=== PATIENT | female | born 1965 | race Two or more races ===

== ENCOUNTER 2024-10-12 07:45 | Inpatient (IN) | payer MEDICAID ==
[~2024-10-12] VITALS: Ht 152.4 cm; Wt 67.9 kg
--- NOTE | 2024-10-12 07:52 | ED.PDOC ---
HPI Comments This is a 59 year old female KASSIE presenting to the ED with chief complaint of HTN. EMS reports that while patient was undergoing dialysis this morning for the past 3 hours, patient was noted to have hypertension with a BP of 202/93. EMS relays that the patient is currently experience chills with associated nausea, but her nausea was resolved once Zofran 4mg was provided. EMS states only 500mL of fluid was removed during dialysis. Patient denies any chest pain, SOB, dizzi ness, headache, cough, congestion, fever, or chills. Time Seen by MD: 07:50 Primary Care Provider: NONE Reviewed Notes: Nurses Notes, Human Resources Leader Notes, Medications, Allergies Allergies: Coded Allergies: Chlorhexidine (Verified Allergy, Unknown, 10/12/24) Information Source: Patient, Emergency Med Personnel Mode of Arrival: EMS Severity: Moderate Timing: Hours Duration: Since onset Prehospital treatment: None Onset: Other (During dialysis) Cardiac Risk Factors: Hyperlipidemia, HTN, Diabetes PE Risk Factors: None Past Medical History PAST MEDICAL HISTORY: CKF, DM, High Lipids, HTN Surgical History: Denies all surgeries FORENSIC ACCOUNTANT History: No Pertinent FORENSIC ACCOUNTANT History Family History Family History: No family hx of HTN Social History Smoker: Non-Smoker Alcohol: Denies ETOH Use Drugs: Denies Drug Use Lives In: Home Constitutional: reports: chills; denies: diaphoresis, fatigue, fever, malaise, sweats, weakness, others EENTM: denies: blurred vision, double vision, ear bleeding, ear discharge, ear drainage, ear pain, ear ringing, eye pain, eye redness, hearing loss, mouth pain, mouth swelling, nasal discharge, nose bleeding, nose congestion, nose pain, photophobia, tearing, throat pain, throat swelling, voice changes, others Respiratory: denies: cough, hemoptysis, orthopnea, SOB at rest, shortness of breath, SOB with excertion, stridor, wheezing, others Cardiovascular: denies: chest pain, dizzy spells, diaphoresis, Dyspnea on ex ertion, edema, irregular heart beat, left arm pain, lightheadedness, palpitations, PND, syncope, others Gastrointestinal: reports: nausea; denies: abdomen distended, abdominal pain, blood streaked bowels, constipated, diarrhea, dysphagia, difficulty swallowing, hematemesis, melena, poor appetite, poor fluid intake, rectal bleeding, rectal pain, vomiting, others Genitourinary: denies: abnormal vagina bleeding, burning, dyspareunia, dysuria, flank pain, frequency, hematuria, incontinence, pain, , vagina discharge, urgency, others Neurological: denies: dizziness, fainting, headache, left sided numbness, left sided weakness, numbness, paresthesia, pre-existing deficit, right sided numbness, right sided weakness, seizure, speech problems, tingling, tremors, weakness, others Musculoskeletal: denies: back pain, gout, joint pain, joint swelling, muscle pain, muscle stiffness, neck pain, others Integumetry: denies: bruises, change in color, change in hair/nails, dryness, laceration, lesions, lumps, rash, wounds, others Allergic/Immunocompromised: denies: Difficulty Healing, Frequent Infections, Hives, Itching, others Hematologic/Lymphatic: denies: anemia, blood clots, easy bleeding, easy bruising, swollen glands, others Endocrine: denies: excessive hunger, excessive sweating, excessive thirst, excessive urination, flushing, intolerance to cold, intolerance to heat, unexplained weight gain, unexplained weight loss, others Psychiatric: denies: anxiety, bipolar disorder, depression, hopeless, panic disorder, schizophrenia, sleepless, suicidal, others All Other Systems: Reviewed and Negative Physical Exam General Appearance: Moderate Distress, Normal HEENT: Normal ENT Inspection, Pharynx Normal, TMs Normal Neck: Full Range of Motion, Non-Tender, Normal, Normal Inspection Respiratory: Chest Non-Tender, Lungs Clear, No Accessory Muscle Use, No Respiratory Distress, Normal Breath Sounds Cardiovascular: No Edema, No JVD, No Murmur, No Gallop, Normal Peripheral Pulses, Regular Rate/Rhythm Breast Exam: Deferred Gastrointestinal: No Organomegaly, Non Tender, No Pulsatile Mass, Normal Bowel Sounds, Soft Genitalia: Deferred Pelvic: Deferred Rectal: Deferred Extremities: No calf tenderness, Normal capillary refill, Normal inspection, Normal range of motion, Non-tender, No pedal edema Musculoskeletal : Apperance: Normal Neurologic: Alert, animal nutritionist II-XII nml as Tested, No Motor Deficits, Normal Affect, Normal Mood, No Sensory Deficits Cerebellar Function: NOT DONE Reflexes: NOT DONE Skin: Dry, Normal Color, Warm Peripheral Pulses: 3+ Radial (R), 3+ Radial (L) Lymphatic: No Adenopathy EKG EKG : Pulse Rate (adult): 72 Orion: Normal Cardiac Rhythm: NSR Block: None Hypertrophy: None ST: Normal Was a procedure done? Was a procedure done?: No CP Differential Dx Differential Diagnosis: A-fib, A-Flutter, Angina, Anxiety / Panic Attack, Atrial Dysrhythmia, Electrolyte Disorder X-Ray, Labs, Meds, VS Vital Signs Date Time Temp Pulse Resp B/P (MAP) Pulse Ox O2 Delivery O2 Flow Rate FiO2 10/12/24 08:25 69 14 188/69 (108) 97 10/12/24 08:25 69 14 97 Room Air* 0 21 10/12/24 07:59 72 10/12/24 07:53 72 10/12/24 07:45 97.9 73 16 202/92 (128) 97 97.9 Lab Test 10/12/24 07:57 Range/Units White Blood Count 9.9 4.4-10.8 10^3/uL Red Blood Count 3.37 L 4.0-5.20 10^6/uL Hemoglobin 11.0 L 12.2-16.2 g/dL Hematocrit 30.6 L 36.0-46.0 % Mean Corpuscular Volume 90.7 80.0-100.0 fL Mean Corpuscular Hemoglobin 32.7 H 28.0-32.0 pg Mean Corpuscular Hemoglobin Concent 36.0 32.0-36.0 g/dL Red Cell Distribution Width 13.1 11.8-14.3 % Platelet Count 186 140-450 10^3/uL Mean Platelet Volume 9.8 6.9-10.8 fL Neutrophils (%) (Auto) 71.1 37.0-80.0 % Lymphocytes (%) (Auto) 20.3 10.0-50.0 % Monocytes (%) (Auto) 5.5 0.0-12.0 % Eosinophils (%) (Auto) 2.5 0.0-7.0 % Basophils (%) (Auto) 0.6 0.0-2.0 % Neutrophils # (Auto) 7.0 1.6-8.6 10 ^3/uL Lymphocytes # (Auto) 2.0 0.4-5.4 10 ^3/uL Monocytes # (Auto) 0.5 0-1.3 10 ^3/uL Eosinophils # (Auto) 0.2 0-0.8 10 ^3/uL Basophils # (Auto) 0.1 0-0.2 10 ^3/uL Nucleated Red Blood Cells 0.0 % Sodium Level 137 136-145 mmol/L Potassium Level 3.5 3.5-5.1 mmol/L Chloride Level 94 L 98-107 mmol/L Carbon Dioxide Level 33 H 20-31 mmol/L Anion Gap 10 5-15 Blood Urea Nitrogen 21 9-23 mg/dL Creatinine 2.85 H 0.550-1.02 mg/dL Glomerular Filtration Rate Calc 18 >90 mL/min BUN/Creatinine Ratio 7.4 L 10.0-20.0 Serum Glucose 107 H 74-106 mg/dL Calcium Level 9.5 8.7-10.4 mg/dL Patient alert. Came from dialysis center. Vitals stable. Answering questions. EKG reviewed does not show any acute changes. Continue monitoring. Chest XR: FINDINGS: Lines and tubes: None Cardiomediastinal silhouette: Enlarged Pulmonary vasculature: Prominent Lung expansion: normal Lung airspace: normal Lung interstitium: normal Pleura: normal Pneumothorax: no Bones: Unremarkable Other: no IMPRESSION: Cardiomegaly with pulmonary congestion. Images Reviewed?: Images reviewed and evaluated by me Time of 1ST Reevaluation: 08:49 Reevaluation 1ST: Unchanged Patient Education/Counseling: Diagnosis, Treatment Family Education/Counseling: No Family Present SEPSIS Sepsis Screen Physician Orders Chest Portable (10/12/24 08:16) Electrocardigram (10/12/24 08:20) Vital Signs Date Time Temp Pulse Resp B/P (MAP) Pulse Ox O2 Delivery O2 Flow Rate FiO2 10/12/24 08:25 69 14 188/69 (108) 97 10/12/24 08:25 69 14 97 Room Air* 0 21 10/12/24 07:59 72 10/12/24 07:53 72 10/12/24 07:45 97.9 73 16 202/92 (128) 97 97.9 Laboratory Tests Test 10/12/24 07:57 White Blood Count 9.9 10^3/uL (4.4-10.8) Departure 1 Departure Time of Disposition: 07:58 Impression: Primary Impression: Hypertensive emergency Additional Impression: Chronic kidney disease on chronic dialysis Disposition: ADMITTED INPATIENT Admit to: Med Surg Condition: Guarded Critical Care Note Critical Care Time?: No Stability Stability form required: No Heart Score Heart Score: Heart Score Response (Comments) Value History Moderate Suspicious 1 EKG Normal 0 Age 45-64 1 Risk Factors >3 or Hx ASHD 2 Troponin N/A 0 Total 4 I personally scribed for AZALIA BETTENCOURT MD ([email or web address]) on 10/12/24 at 07:52. Electronically submitted by Phi Vazquez ([email or web address]). I personally scribed for AZALIA BETTENCOURT MD ([email or web address]) on 10/12/24 at 07:59. Electronically submitted by Phi Vazquez ([email or web address]). I personally scribed for AZALIA BETTENCOURT MD ([email or web address]) on 10/12/24 at 09:00. Electronically submitted by Phi Vazquez ([email or web address]). AZALIA BETTENCOURT MD Oct 12, 2024 07:52
[2024-10-12 08:25] VITALS: PULSE 69; RESP 14; O2SAT 97
[2024-10-12 08:33] LABS: Hematocrit 30.6 % (36.0-46.0); Hemoglobin 11.0 g/dL (12.2-16.2); Mean Corpuscular Hemoglobin 32.7 pg (28.0-32.0); Mean Corpuscular Volume 90.7 fL (80.0-100.0); Nucleated Red Blood Cells % 0.0 %
[2024-10-12 08:36] LABS: Potassium 3.5 mmol/L (3.5-5.1); Sodium 137 mmol/L (136-145)
[2024-10-12 08:37] LABS: Anion Gap 10 (5-15)
[2024-10-12 08:38] LABS: Calcium 9.5 mg/dL (8.7-10.4); Carbon Dioxide 33 mmol/L (20-31); Chloride 94 mmol/L (98-107)
[2024-10-12 08:42] LABS: BUN/Creatinine Ratio 7.4 (10.0-20.0); Blood Urea Nitrogen 21 mg/dL (9-23); Glucose 107 mg/dL (74-106)
--- NOTE | 2024-10-12 08:55 | DVH ---
XY CHEST PORTABLE, HISTORY: sob COMPARISON: None None TECHNICAL DATA: 1 view of the chest was obtained. FINDINGS: Lines and tubes: None Cardiomediastinal silhouette: Enlarged Pulmonary vasculature: Prominent Lung expansion: normal Lung airspace: normal Lung interstitium: normal Pleura: normal Pneumothorax: no Bones: Unremarkable Other: no IMPRESSION: Cardiomegaly with pulmonary congestion.
[2024-10-12] MEDS: LABETALOL HCL 20 MG/4 ML VL IV ONE (09:34)
[2024-10-12] MEDS ORDERED: DOCUSATE SOD 100 MG CAP PO PRN ×4 (11:00→11:15)
[2024-10-12] MEDS ORDERED: MORPHINE SULFATE INJ 2 MG/ml SYRG IV PRN (11:00)
[2024-10-12] MEDS ORDERED: ONDANSETRON HCL 4 MG/2 ML VIAL IV PRN ×4 (11:00→11:15)
[2024-10-12] MEDS ORDERED: NITROGLYCERIN 0.4 MG SL TAB SL PRN ×2 (11:00→11:15)
--- NOTE | 2024-10-12 11:08 | DVHHP2 ---
History of Present Illness Reason for Visit: elevated blood pressure History of Present Illness 59-year-old female with past medical history of (CKD) on dialysis, hyperlipidemia, and hypertension with no known surgical history, presented after developing hypertensive urgency and chills during dialysis. According to her son, Nelson (food equipment service technician at bedside), the patient underwent her regular dialysis session earlier today. Only 500 mL of fluid was removed over three hours. During the session, her blood pressure spiked to 202/93, and she developed chills and nausea. She received Zofran from paramedics en route. She currently denies chest pain, shortness of breath, or urinary symptoms. She was noted to be trembling in transit, but appeared calm upon ED evaluation. In the ED, labetalol was administered. Lab results revealed: CBC unremarkable, creatinine 2.85, CO 33, chloride 95, glucose 107, and CMP otherwise unremarkable. Chest x-ray showed pulmonary vascular congestion and cardiomegaly. Given hypertensive urgency during dialysis, incomplete fluid removal, and concern for fluid overload, patient will be admitted for BP control, further cardiac workup, and evaluation for dialysis adequacy. Past Medical History See HPI above Past Surgical History See HPI above Family History Reviewed, non-contributory to the management of this case. Past Social History The patient lives at home, denies smoking, alcohol or illicit drugs abuse. Review of Systems Constitutional: Yes: Fever, Chills; No: Sweats, Weakness, Malaise, Other Eyes: No: Pain, Vision change, Conjunctivae inflammation, Eyelid inflammation, Other, Redness ENT: No: Ear pain, Ear discharge, Nose pain, Nose discharge, Nose congestion, Mouth pain, Mouth swelling, Throat pain, Throat swelling, Other Respiratory: No: Cough, Dry, Shortness of breath, SOB with excertion, Wheezing, Hemoptysis, Pleuritic Pain, Sputum, Wheezing, Other Cardiovascular: No: Chest Pain, Palpitations, Orthopnea, Paroxysmal Noc. Dyspnea, Edema, Lt Headedness, Other Gastrointestinal: No: Nausea, Vomiting, Abdominal Pain, Diarrhea, Constipation, Melena, Hematochezia, Other Genitourinary: No Dysuria, No Frequency, No Incontinence, No Hematuria, No Retention, No Other Musculoskeletal: No: other, neck pain, shoulder pain, arm pain, back pain, hand pain, leg pain, foot pain Skin: No: Rash, Lesions, Jaundice, Bruising, Other Neurological: No: Weakness, Numbness, Incoordination, Change in speech, Confusion, Seizures, Other Allergies: Coded Allergies: Chlorhexidine (Verified Allergy, Unknown, 10/12/24) Medications Current Medications Medications Dose Ordered Sig/Jareth Route Start Time Stop Time Status Last Admin Dose Admin Ondansetron HCl 4 mg Q4HP PRN IV 10/12/24 11:00 UNV Docusate Sodium 100 mg BIDPRN PRN PO 10/12/24 11:00 UNV Enoxaparin Sodium 30 mg DAILY SC 10/13/24 10:00 UNV Morphine Sulfate 2 mg Q4HPRN PRN IV 10/12/24 11:00 UNV Ondansetron HCl 4 mg Q4HP PRN IV 10/12/24 11:00 UNV Docusate Sodium 100 mg BIDPRN PRN PO 10/12/24 11:00 UNV Nitroglycerin 0.4 mg Q5MINP PRN SL 10/12/24 11:00 UNV Exam Vital Signs Vital Signs Date Time Temp Pulse Resp B/P (MAP) Pulse Ox O2 Delivery O2 Flow Rate FiO2 10/12/24 09:34 69 193/86 10/12/24 08:25 14 97 10/12/24 08:25 Room Air* 0 21 10/12/24 07:45 97.9 97.9 General Appearance: Alert, Oriented X3, Cooperative, No acute distress HEENT: Atraumatic, PERRLA, EOMI, Mucous membr. moist/pink Respiratory: Clear to auscultation, Normal air movement Cardiovascular: Regular rate, Normal S1, Normal S2, No murmurs Abdominal: Normal bowel sounds, Soft, No tenderness, No hepatospenomegaly, No masses Extremities: No clubbing, No cyanosis, No edema, Normal pulses, No tender ness/swelling Skin: No rashes, No breakdown, No significant lesion Neuro: Normal gait, Normal speech, Strength at 5/5 X4 ext, Normal tone, Sensation intact, Cranial nerves 3-12 NL Psych/Mental Status: Mental status NL, Mood NL Labs/Xrays Chest x-ray shows pulmonary congestion and cardiomegaly I reviewed labs, imaging CT scan abdomen pelvis, EKG and all diagnostic studies on this patient from ED records and the medical chart Labs Test 10/12/24 07:57 Range/Units White Blood Count 9.9 4.4-10.8 10^3/uL Red Blood Count 3.37 L 4.0-5.20 10^6/uL Hemoglobin 11.0 L 12.2-16.2 g/dL Hematocrit 30.6 L 36.0-46.0 % Mean Corpuscular Volume 90.7 80.0-100.0 fL Mean Corpuscular Hemoglobin 32.7 H 28.0-32.0 pg Mean Corpuscular Hemoglobin Concent 36.0 32.0-36.0 g/dL Red Cell Distribution Width 13.1 11.8-14.3 % Platelet Count 186 140-450 10^3/uL Mean Platelet Volume 9.8 6.9-10.8 fL Neutrophils (%) (Auto) 71.1 37.0-80.0 % Lymphocytes (%) (Auto) 20.3 10.0-50.0 % Monocytes (%) (Auto) 5.5 0.0-12.0 % Eosinophils (%) (Auto) 2.5 0.0-7.0 % Basophils (%) (Auto) 0.6 0.0-2.0 % Neutrophils # (Auto) 7.0 1.6-8.6 10 ^3/uL Lymphocytes # (Auto) 2.0 0.4-5.4 10 ^3/uL Monocytes # (Auto) 0.5 0-1.3 10 ^3/uL Eosinophils # (Auto) 0.2 0-0.8 10 ^3/uL Basophils # (Auto) 0.1 0-0.2 10 ^3/uL Nucleated Red Blood Cells 0.0 % Sodium Level 137 136-145 mmol/L Potassium Level 3.5 3.5-5.1 mmol/L Chloride Level 94 L 98-107 mmol/L Carbon Dioxide Level 33 H 20-31 mmol/L Anion Gap 10 5-15 Blood Urea Nitrogen 21 9-23 mg/dL Creatinine 2.85 H 0.550-1.02 mg/dL Glomerular Filtration Rate Calc 18 >90 mL/min BUN/Creatinine Ratio 7.4 L 10.0-20.0 Serum Glucose 107 H 74-106 mg/dL Calcium Level 9.5 8.7-10.4 mg/dL SEPSIS Sepsis Screen Date sepsis recognized/suspect: Oct 12, 2024 Time Sepsis recognized/suspect: 0838 Recent Procedure: No On Antibiotic Therapy: No Respiratory Rate >20: No Heart Rate >90: No Temp<36 C (96.8 F) or >38.3 C: No SBP <90 or MAP <65 mmHG: No New Acute Mental Status Change: No Is the patient on CPAP, BIPAP,: No Physician Orders Chest Portable (10/12/24 08:16) Electrocardigram (10/12/24 08:20) Communication Order (10/12/24 10:51) Allergies (10/12/24 10:51) Ondansetron Hcl (Zofran) (10/12/24 11:00) Docusate Sodium Capsule (Colace Capsule) (10/12/24 11:00) Complete Blood Count (10/13/24 04:00) Comprehensive Metabolic Panel (10/13/24 04:00) Cardiac Diet-2gna,Lofat,Lochol (10/12/24 Lunch) Condition: Stable (10/12/24 10:51) Enoxaparin Sodium (Lovenox) (10/13/24 10:00) BRP (10/12/24 10:51) Morphine Sulfate Injection (10/12/24 11:00) Sequential Compression Device (10/12/24 ) Admit (10/12/24 10:53) Code Status (10/12/24 10:53) Ondansetron Hcl (Zofran) (10/12/24 11:00) Docusate Sodium Capsule (Colace Capsule) (10/12/24 11:00) Nitroglycerin Sublingual (Ntrostat Subli (10/12/24 11:00) Stat Ekg For Chest Pain (10/12/24 10:53) Notify Md Of Changes From Base (10/12/24 10:53) Ammonia Worker For 24 Hours (10/12/24 10:53) Emergency Dysrhythmia Protocol (10/12/24 10:53) Rhythm Strips Once Every Shift (10/12/24 10:53) Oxygen By Nasal Cannula (10/12/24 10:53) *Dr. Renita Carmona (10/12/24 10:55) Urinalysis (10/12/24 10:56) Blood Culture (10/12/24 10:56) Rapid Influenza A&B (10/12/24 10:56) Covid19 Antigen Jodi (10/12/24 ) Vital Signs Date Time Temp Pulse Resp B/P (MAP) Pulse Ox O2 Delivery O2 Flow Rate FiO2 10/12/24 09:34 69 193/86 10/12/24 08:25 69 14 188/69 (108) 97 10/12/24 08:25 69 14 97 Room Air* 0 21 10/12/24 07:59 72 10/12/24 07:53 72 10/12/24 07:45 97.9 73 16 202/92 (128) 97 97.9 Laboratory Tests Test 10/12/24 07:57 White Blood Count 9.9 10^3/uL (4.4-10.8) Medications Medications Dose Ordered Sig/Jareth Route Start Time Stop Time Status Last Admin Dose Admin Labetalol HCl 10 mg ONCE ONCE IV 10/12/24 08:15 10/12/24 08:16 DC 10/12/24 09:34 10 MG Assessment/Plan Assessment/Plan 59 yr old female with Hypertensive urgency in setting of chronic kidney disease on dialysis admit for BP control, cardiology evaluation, and dialysis management. ASSESSMENT & PLAN acute Hypertensive urgency BP 202/93 during dialysis session Treated with IV labetalol in ED Monitor BP q4h Resume/adjust antihypertensives as needed Daily labs and telemetry monitoring Cardiology consult Echocardiogram Chronic kidney disease on dialysis on HD TTS Missed fluid goal during dialysis (only 500 mL removed) Nephrology consult (Dr. rosanna carmona) pt will likely need additional dialysis Monitor weight, fluid balance, and electrolytes Blood cultures 2 and UA sent to rule out infection Nausea/chills during dialysis Likely related to hypertensive episode or volume status Monitor for signs of sepsis pending cultures Continue antiemetics (Zofran PRN) Cardiomegaly and pulmonary vascular congestion Seen on chest x-ray Concern for volume overload Order Echocardiogram fu results ordered Lasix since pt makes urine chronic problems CKD stage 5 on dialysis Essential hypertension Hyperlipidemia FEN / PPx Fluids: Avoid IVFs unless hypotensive; manage volume status via dialysis Electrolytes: Daily BMP, replete as needed Nutrition: Renal diet DVT Prophylaxis: SCDs unless contraindicated; lovenox GI Prophylaxis: PPI not indicated since no hx of gerds or gi bleed Disposition Admit to medicine for hypertensive urgency in the setting of dialysis-dependent CKD. Monitor vitals, labs, and fluid balance. Await blood cultures. Consult cardiology and nephrology. Echocardiogram pending. consult renal since pt will likely additional dialysis Plan discussed with: Patient, Son (nelson seaman [phone]) My Orders Orders - DAVID FERGUSON DNP Procedure Category Date Status Time Communication Order ORDERS 10/12/24 Transmitted 10:51 Allergies KSENIA 10/12/24 In Process 10:51 Ondansetron Hcl PHA 10/12/24 Logged (Zofran) 11:00 Docusate Sodium PHA 10/12/24 Logged Capsule (Colace 11:00 Complete Blood Count LAB 10/13/24 Verified 04:00 Comprehensive LAB 10/13/24 Verified Metabolic Panel 04:00 Cardiac DIET 10/12/24 Transmitted Diet-2gna,Lofat,Lochol Lunch Condition: Stable KSENIA 10/12/24 In Process 10:51 Enoxaparin Sodium PHA 10/13/24 Logged (Lovenox) 10:00 BRP KSENIA 10/12/24 In Process 10:51 Morphine Sulfate PHA 10/12/24 Logged Injection 11:00 Sequential KSENIA 10/12/24 In Process Compression Device Admit ADMIT 10/12/24 Transmitted 10:53 Code Status CODE 10/12/24 Transmitted 10:53 Ondansetron Hcl PHA 10/12/24 Logged (Zofran) 11:00 Docusate Sodium PHA 10/12/24 Logged Capsule (Colace 11:00 Nitroglycerin PHA 10/12/24 Logged Sublingual (Ntrostat 11:00 Stat Ekg For Chest KSENIA 10/12/24 In Process Pain 10:53 Notify Of Changes KSENIA 10/12/24 In Process From Base 10:53 Ammonia Worker For KSENIA 10/12/24 In Process 24 Hours 10:53 Emergency Dysrhythmia KSENIA 10/12/24 In Process Protocol 10:53 Rhythm Strips Once KSENIA 10/12/24 In Process Every Shift 10:53 Oxygen By Nasal RT 10/12/24 Transmitted Cannula 10:53 *Dr. Renita Carmona CONS 10/12/24 Transmitted 10:55 Urinalysis LAB 10/12/24 Logged 10:56 Blood Culture NIDHI 10/12/24 Logged 10:56 Rapid Influenza A&B LAB 10/12/24 Logged 10:56 Covid19 Antigen Jodi LAB 10/12/24 Logged Date of Service: Oct 12, 2024 Billing Provider: DAVID FERGUSON DNP Common Visit Codes: [id number] INP/OBS CARE (HIGH) DAVID FERGUSON DNP Oct 12, 2024 11:08
[2024-10-12 11:24] LABS: Urine Protein, UAD 1+ (Negative)
[2024-10-12 17:08] LABS: COVID19 ANTIGEN SOFIA FIA NEGATIVE (NEGATIVE)
[2024-10-12 17:56] VITALS: BP 163/83; PULSE 62; RESP 18; TEMP 97.8; O2SAT 96
--- NOTE | 2024-10-12 18:53 | ECG ---
[facility] Test Date: 2024-10-12 Test Time: 07:53:59 Pat Name: DONITA AGUILERA Department: ED Room: 0274T Gender: F Shear Assembler: amador : 1965 Requested By: AZALIA BETTENCOURT Order Number: [id number] Reading MD: Measurements Intervals [place] Rate: 72 P: 11 NH: 150 QRS: -23 QRSD: 113 T: 5 QT: 570 QTc: 625 Interpretive Statements Sinus rhythm Incomplete RBBB and LAFB Abnormal R-wave progression, late transition Probable left ventricular hypertrophy Prolonged QT interval Please click the below link to view image of tracing.
[2024-10-12 20:00] VITALS: PULSE 68
[2024-10-12 21:00] VITALS: BP 149/81; PULSE 66; RESP 18; TEMP 96.9; O2SAT 91
--- NOTE | 2024-10-12 21:09 | DVHINCON2 ---
Date of service: Oct 12, [address] Renee Reason for Consultation ESRD and dialysis management. History of Present Illness Paige Shafer is a 59-year-old female with a Past Medical History pertinent for CKD on dialysis, Hyperlipidemia and Hypertension who presented to the hospital after developing hypertensive urgency and chills during dialysis. Patient underwent her regular dialysis session earlier today per son. Only 500 mL of fluid was removed over three hours. During treatment, her blood pressure increased to 202/93 and she developed chills and nausea. Patient was brought to the hospital by ambulance. She received Zofran from [facility] en route. Patient denies any current chest pain, shortness of breath, or urinary symptoms. During ED course, CBC was unremarkable, Creatinine 2.85, CO 33, Chloride 95, Glucose 107. CMP otherwise unremarkable. Chest x-ray showed pulmonary vascular congestion and cardiomegaly. IV labetalol was administered with improvement. Allergies: Coded Allergies: Chlorhexidine (Verified Allergy, Unknown, 10/12/24) Current Medications Current Medications Medications (Trade) Dose Ordered Sig/Jareth Route PRN Reason Start Time Stop Time Status Last Admin Ondansetron HCl (Zofran) 4 mg Q4HP PRN IV NAUSEA / VOMITING 10/12/24 11:00 10/12/24 11:13 DC Docusate Sodium (Colace Capsule) 100 mg BIDPRN PRN PO FOR CONSTIPATION 10/12/24 11:00 10/12/24 11:13 DC Enoxaparin Sodium (Lovenox) 30 mg DAILY SC 10/13/24 10:00 10/12/24 11:13 DC Morphine Sulfate 2 mg Q4HPRN PRN IV SEVERE PAIN (7-10 PAIN SCALE) 10/12/24 11:00 10/12/24 11:13 DC Ondansetron HCl (Zofran) 4 mg Q4HP PRN IV NAUSEA / VOMITING 10/12/24 11:00 10/12/24 11:13 DC Docusate Sodium (Colace Capsule) 100 mg BIDPRN PRN PO FOR CONSTIPATION 10/12/24 11:00 10/12/24 11:13 DC Nitroglycerin (Ntrostat Sublingual) 0.4 mg Q5MINP PRN SL FOR CHEST PAIN 10/12/24 11:00 10/12/24 11:13 DC Ondansetron HCl (Zofran) 4 mg Q4HP PRN IV NAUSEA / VOMITING 10/12/24 11:15 10/12/24 11:27 DC Enoxaparin Sodium (Lovenox) 30 mg DAILY SC 10/13/24 10:00 Morphine Sulfate 2 mg Q4HPRN PRN IV SEVERE PAIN (7-10 PAIN SCALE) 10/12/24 11:15 Ondansetron HCl (Zofran) 4 mg Q4HP PRN IV NAUSEA / VOMITING 10/12/24 11:15 Docusate Sodium (Colace Capsule) 100 mg BIDPRN PRN PO FOR CONSTIPATION 10/12/24 11:15 10/12/24 11:27 DC Docusate Sodium (Colace Capsule) 100 mg BIDPRN PRN PO FOR CONSTIPATION 10/12/24 11:15 Nitroglycerin (Ntrostat Sublingual) 0.4 mg Q5MINP PRN SL FOR CHEST PAIN 10/12/24 11:15 Hydralazine HCl (Apresoline Injection) 10 mg Q6HP PRN IV SBP>150 10/12/24 13:15 Furosemide (Lasix Injection) 20 mg DAILY IV 10/13/24 10:00 Family History: Chronic obstructive pulmonary disease G8 FATHER Diabetes mellitus G8 MOTHER Hypertension G8 MOTHER Review of Systems Constitutional: Yes: Fever, Chills; No: Sweats, Weakness, Malaise, Other Respiratory: No: Cough, Dry, Shortness of breath, SOB with excertion, Wheezing, Hemoptysis, Pleuritic Pain, Sputum, Wheezing, Other Cardiovascular: No: Chest Pain, Palpitations, Orthopnea, Paroxysmal Noc. Dyspnea, Edema, Lt Headedness, Other Gastrointestinal: No: Nausea, Vomiting, Abdominal Pain, Diarrhea, Constipation, Melena, Hematochezia, Other Musculoskeletal: No: other, neck pain, shoulder pain, arm pain, back pain, hand pain, leg pain, foot pain All other systems reviewed and negative unless otherwise noted in HPI. H&P Exam Vital Signs/I&O Vital Sign Date Time Temp Pulse Resp B/P (MAP) Pulse Ox O2 Delivery O2 Flow Rate FiO2 10/12/24 20:00 Room Air* 0 21 10/12/24 17:56 97.8 62 18 163/83 (109) 96 97.8 Physical Exam Vitals and nursing notes reviewed. General Appearance: Cooperative, No acute distress HEENT: Atraumatic, PERRLA, EOMI, Mucous membr. moist/pink Respiratory: Clear to auscultation, Normal air movement Cardiovascular: Regular rate, Normal S1, Normal S2, No murmurs Abdominal: Normal bowel sounds, Soft, No tenderness, No hepatospenomegaly, No masses Extremities: No clubbing, No cyanosis, No edema, Normal pulses, No tenderness/swelling Skin: No rashes, No breakdown, No significant lesion Neuro: Alert, Oriented X3, Normal gait, Normal speech, Strength at 5/5 X4 ext, Normal tone, Sensation intact, Cranial nerves 3-12 NL Psych/Mental Status: Mental status NL, Mood NL Labs/Diagnostic Data Labs/Diagnostic Data Laboratory Tests Test 10/12/24 16:28 10/12/24 10:56 10/12/24 07:57 Range/Units Influenza Type A Antigen Negative Negative Influenza Type B Antigen Negative Negative SARS-CoV-2 Antigen (Rapid) Negative NEGATIVE Urine Color Colorless Yellow Urine Clarity Clear Clear Urine pH 8.0 5.0-9.0 Urine Specific [place] 1.004 1.001-1.035 Urine Protein 1+ H Negative Urine Ketones Negative Negative Urine Blood Negative Negative /uL Urine Nitrite Negative Negative Urine Bilirubin Negative Negative Urine Urobilinogen Normal Negative mg/dL Urine Leukocyte Esterase Negative Negative /uL Urine RBC 1 0 - 4 /hpf Urine Microscopic WBC 1 0-5 /HPF Urine Squamous Epithelial Cells Few <5 /hpf Urine Bacteria None seen None Seen /hpf Urine Glucose Normal Normal mg/dL White Blood Count 9.9 4.4-10.8 10^3/uL Red Blood Count 3.37 L 4.0-5.20 10^6/uL Hemoglobin 11.0 L 12.2-16.2 g/dL Hematocrit 30.6 L 36.0-46.0 % Mean Corpuscular Volume 90.7 80.0-100.0 fL Mean Corpuscular Hemoglobin 32.7 H 28.0-32.0 pg Mean Corpuscular Hemoglobin Concent 36.0 32.0-36.0 g/dL Red Cell Distribution Width 13.1 11.8-14.3 % Platelet Count 186 140-450 10^3/uL Mean Platelet Volume 9.8 6.9-10.8 fL Neutrophils (%) (Auto) 71.1 37.0-80.0 % Lymphocytes (%) (Auto) 20.3 10.0-50.0 % Monocytes (%) (Auto) 5.5 0.0-12.0 % Eosinophils (%) (Auto) 2.5 0.0-7.0 % Basophils (%) (Auto) 0.6 0.0-2.0 % Neutrophils # (Auto) 7.0 1.6-8.6 10 ^3/uL Lymphocytes # (Auto) 2.0 0.4-5.4 10 ^3/uL Monocytes # (Auto) 0.5 0-1.3 10 ^3/uL Eosinophils # (Auto) 0.2 0-0.8 10 ^3/uL Basophils # (Auto) 0.1 0-0.2 10 ^3/uL Nucleated Red Blood Cells 0.0 % Sodium Level 137 136-145 mmol/L Potassium Level 3.5 3.5-5.1 mmol/L Chloride Level 94 L 98-107 mmol/L Carbon Dioxide Level 33 H 20-31 mmol/L Anion Gap 10 5-15 Blood Urea Nitrogen 21 9-23 mg/dL Creatinine 2.85 H 0.550-1.02 mg/dL Glomerular Filtration Rate Calc 18 >90 mL/min BUN/Creatinine Ratio 7.4 L 10.0-20.0 Serum Glucose 107 H 74-106 mg/dL Calcium Level 9.5 8.7-10.4 mg/dL Assessment Acute Hypertensive urgency ESRD on dialysis on HD TTS Cardiomegaly and pulmonary vascular congestion Essential hypertension Hyperlipidemia Plan/Recommendation Agreement with your ongoing assessment and plan of care. S/p dialysis outpatient with 500 mL removed. Diuretics with Lasix 20 mg IV daily. Strict Intake/Output. Daily lab monitoring to include renal function and electrolytes. Optimization of BP with IV Labetalol. Resume antihypertensives as needed. Echocardiogram ordered/pending. F/u cultures. Antiemetics prn. Renal diet. DVT prophylaxis. Additional plan as per the hospital course. Plan discussed with: Patient, Other (RN) ISABELLA VALDERRAMA DO Oct 12, 2024 21:09
[2024-10-13] VITALS (10 sets, daily range): BP systolic 130–180; BP diastolic 70–85; PULSE 65–100; RESP 16–20; TEMP 97–97.8; O2SAT 94–99
[2024-10-13] MEDS: hydrALAZINE HCL 20 MG/ML VL IV PRN (04:55)
[2024-10-13] MEDS: ENOXAPARIN SOD 30 MG/0.3 ML SYRINGE SC SCH (09:46)
[2024-10-13] MEDS: FUROSEMIDE 20 MG/2 ML VIAL IV SCH (09:46)
[2024-10-13] MEDS: MORPHINE SULFATE INJ 2 MG/ml SYRG IV PRN (09:53)
[2024-10-13] MEDS ORDERED: ENOXAPARIN SOD 30 MG/0.3 ML SYRINGE SC SCH (10:00)
--- NOTE | 2024-10-13 12:48 | DVHPN2 ---
Subjective I am assuming the care of the patient from today onwards who was under the care of the hospitalist team. This is a 59-year-old female with a known history of insulin-dependent diabetes mellitus type 2, hypertension, end-stage renal disease on hemodialysis who initially presented to the hospital with nausea during dialysis as well as high blood pressure. Currently denies any chest pain shortness of breath. Changes from previous H/P or p: No Changes Eyes: No Pain, No Vision change, No Conjunctivae inflammation, No Eyelid inflammation, No Other, No Redness ENT: No Ear pain, No Ear discharge, No Nose pain, No Nose discharge, No Nose congestion, No Mouth pain, No Mouth swelling, No Throat pain, No Throat swelling, No Other Cardiovascular: No Chest Pain, No Palpitations, No Orthopnea, No Paroxysmal Noc. Dyspnea, No Edema, No Lt Headedness, No Other Respiratory: No Cough, No Dry, No Shortness of breath, No SOB with excertion, No Wheezing, No Hemoptysis, No Pleuritic Pain, No Sputum, No Other Gastrointestinal: No Nausea, No Vomiting, No Abdominal Pain, No Diarrhea, No Constipation, No Melena, No Hematochezia, No Other Genitourinary: No Dysuria, No Frequency, No Incontinence, No Hematuria, No Retention, No Other Musculoskeletal: No other, No neck pain, No shoulder pain, No arm pain, No back pain, No hand pain, No leg pain, No foot pain Skin: No Rash, No Lesions, No Jaundice, No Bruising, No Other Objective Vitals Vital Signs Date Time Temp Pulse Resp B/P (MAP) Pulse Ox O2 Delivery O2 Flow Rate FiO2 10/13/24 09:53 150/70 10/13/24 09:53 68 18 10/13/24 09:00 97.8 96 97.8 10/13/24 07:30 Room Air* 0 21 Intake/Output Intake and Output 10/13/24 07:00 Intake Total 0 ml Balance 0 ml Intake Oral 0 ml # Voids 1 Exam HEENT pupils are reactive Neck is supple CV is S1-S2 regular rate and rhythm Respiratory are clear GI positive bowel sound Extremity no edema W[place]OO[place] no motor deficit Medications Current Medications Medications Dose Ordered Sig/Jareth Route Start Time Stop Time Status Last Admin Dose Admin Enoxaparin Sodium 30 mg DAILY SC 10/13/24 10:00 10/13/24 09:53 30 MG Morphine Sulfate 2 mg Q4HPRN PRN IV 10/12/24 11:15 10/13/24 09:53 2 MG Ondansetron HCl 4 mg Q4HP PRN IV 10/12/24 11:15 Docusate Sodium 100 mg BIDPRN PRN PO 10/12/24 11:15 Nitroglycerin 0.4 mg Q5MINP PRN SL 10/12/24 11:15 Hydralazine HCl 10 mg Q6HP PRN IV 10/12/24 13:15 10/13/24 04:55 10 MG Furosemide 20 mg DAILY IV 10/13/24 10:00 10/13/24 09:53 20 MG Laboratory Results Laboratory Tests 10/12/24 07:57 Urinalysis Test 10/12/24 10:56 Urine Color Colorless (Yellow) Urine Clarity Clear (Clear) Urine pH 8.0 (5.0-9.0) Urine Specific [place] 1.004 (1.001-1.035) Urine Protein 1+ (Negative) H Urine Ketones Negative (Negative) Urine Blood Negative /uL (Negative) Urine Nitrite Negative (Negative) Urine Bilirubin Negative (Negative) Urine Urobilinogen Normal mg/dL (Negative) Urine Leukocyte Esterase Negative /uL (Negative) Urine RBC 1 /hpf (0 - 4) Urine Microscopic WBC 1 /HPF (0-5) Urine Squamous Epithelial Cells Few /hpf (<5) Urine Bacteria None seen /hpf (None Seen) Urine Glucose Normal mg/dL (Normal) Microbiology Microbiology Date/Time Source Procedure Growth Status 10/12/24 18:40 Nose MRSA Screen - Final Complete 10/12/24 11:13 Blood Blood Culture - Preliminary NO GROWTH AFTER 24 HOURS OF INCUBATION. Resulted Assessment/Plan Assessment/Plan 59-year-old female with a known history of end-stage renal disease on hemodialysis, hypertension, insulin-dependent diabetes sinus type 2 initially presented to the hospital with a nausea and high blood pressure found to have 1. Hypertensive urgency 2. End-stage renal disease on hemodialysis 3. Insulin-dependent diabetes mellitus type 2 -resume labetalol, nifedipine XL, long-acting insulin -Accu-Cheks q.a.c. and HS, low-dose -subcutaneous insulin sliding scale plan of care discussed with the bedside RN as well as patient's as well as patient's son at bedside. Plan discussed with: Patient, Son Date of Service: Oct 13, 2024 Billing Provider: CHAPITO AVINA MD Common Visit Codes: [id number] INP/OBS CARE(MOD) CHAPITO AVINA MD Oct 13, 2024 12:48
[2024-10-13] MEDS ORDERED: DEXTROSE (50%) 50ML SYRG IV PRN (13:00)
--- NOTE | 2024-10-13 16:12 | DVHPN2 ---
Progress Note - Dictate Date Seen: Oct 13, 2024 Has the PT tested + for MRSA If YES, has PT been informed?: No Medical Necessity Reason Pt with a Central, PICC or Fol: No Subjective Patient was seen and evaluated in follow up. No acute events overnight. Patient denies any new complaints. Pending Echo. vital signs Vital Sign Date Time Temp Pulse Resp B/P (MAP) Pulse Ox O2 Delivery O2 Flow Rate FiO2 10/13/24 14:36 132/71 (91) 10/13/24 12:48 97.5 89 20 99 97.5 10/13/24 07:30 Room Air* 0 21 Total Intake and Output 10/12/24 10/12/24 10/13/24 15:00 23:00 07:00 Intake Total 0 ml Balance 0 ml medications Current Medications Medications Dose Ordered Sig/Jareth Route Start Time Stop Time Status Last Admin Dose Admin Enoxaparin Sodium 30 mg DAILY SC 10/13/24 10:00 10/13/24 09:53 30 MG Morphine Sulfate 2 mg Q4HPRN PRN IV 10/12/24 11:15 10/13/24 09:53 2 MG Ondansetron HCl 4 mg Q4HP PRN IV 10/12/24 11:15 Docusate Sodium 100 mg BIDPRN PRN PO 10/12/24 11:15 Nitroglycerin 0.4 mg Q5MINP PRN SL 10/12/24 11:15 Hydralazine HCl 10 mg Q6HP PRN IV 10/12/24 13:15 10/13/24 13:08 10 MG Furosemide 20 mg DAILY IV 10/13/24 10:00 10/13/24 09:53 20 MG Diagnostic Test (Pha) 1 strip ACHS 10/13/24 17:00 Insulin Human Regular ACHS SC 10/13/24 17:00 Dextrose 50 ml UD PRN IV 10/13/24 13:00 Trazodone HCl 50 mg HS PO 10/13/24 22:00 Clonidine HCl 0.1 mg BID PO 10/13/24 22:00 Labetalol HCl 200 mg Q12HR PO 10/13/24 22:00 Nifedipine 60 mg DAILY PO 10/14/24 10:00 objective Vitals and nursing notes reviewed. General Appearance: Cooperative, No acute distress HEENT: Atraumatic, PERRLA, EOMI, Mucous membr. moist/pink Respiratory: Clear to auscultation, Normal air movement Cardiovascular: Regular rate, Normal S1, Normal S2, No murmurs Abdominal: Normal bowel sounds, Soft, No tenderness, No hepatospenomegaly, No masses Extremities: No clubbing, No cyanosis, No edema, Normal pulses, No tenderness/swelling Skin: No rashes, No breakdown, No significant lesion Neuro: Alert, Oriented X3 Psych/Mental Status: Mental status NL, Mood NL laboratory and microbiology Laboratory Tests 10/12/24 07:57 Test 10/12/24 07:57 Range/Units Serum Glucose 107 H 74-106 mg/dL Problem List Acute Hypertensive urgency ESRD on dialysis on HD TTS Cardiomegaly and pulmonary vascular congestion Essential hypertension Hyperlipidemia Assessment/Plan Agree with current supportive medical care. Echocardiogram ordered/pending. Resuming home blood pressure medications. DC in progress once BP stabilizes. Cleared for discharge from Nephrology standpoint, if no other issues arise. Resume outpatient dialysis with [facility]. Plan discussed with: Patient, Other (RN) ISABELLA VALDERRAMA DO Oct 13, 2024 16:11
[2024-10-13] MEDS: InsuLIN REG 1unit/0.01ml Soln (100units/ml) SC SCH (16:34)
[2024-10-13] MEDS: ACCU-CHEK COMFORT CURVE STRIP VI SCH (16:34)
--- NOTE | 2024-10-13 16:50 | DVHSR ---
APPROVED REPORT EXAM: Two-dimensional and M-mode echocardiogram with Doppler and color Doppler. Blood Pressure: 193/86 mmHg INDICATION Eval for cardiac function and ef RISK FACTORS Height: 5'1", Weight: 105 DIMENSIONS LVDd5.4 (3.8-5.7cm)LA (2D)4.0 (1.9-4.0cm)Aortic Root3.2 (2.0-3.7cm) LVDs4.4 (2.5-4.0cm)LA (MM) (1.9-4.0cm)Aortic Cusp Exc1.7 (1.5-2.0cm) EF (%) 40.0 (55-70%)Rt. Atrium3.7 (1.9-4.0cm)Asc. Aorta cm IVSd1.0 (0.7-1.1cm)RV (D)3.8 (1.8-2.4cm) PWd1.0 (0.7-1.1cm) Mitral Valve MitralMitral Stenosis E wave0.94m/sMV Mean GR.mmHg A wave1.24m/sMV Peak GR.mmHg E/A ratio0.82D MVAcm2 DECEL [id number] 1/2 Timems Aortic Valve Aortic ValveAortic Stenosis V10.75m/Slime Mean GR.3mmHg V21.20m/Slime Peak GR.6mmHg LVOT Diameter2.1 (1.8-2.4cm)Doppler AVA2.16cm2 Pulmonic Valve V20.76m/s Tricuspid Valve TR Velocity2.76m/s [id number] Other Information Technically limited study due to body habitus and patient position. Conclusion Technically good study. Sinus bradycardia. Left atrial enlargement with a mild LV enlargement. Mild mitral annular calcification. Mild aortic sclerosis. Left ventricular systolic function is preserved. EF is about 50% with normal RV function. Trace mitral insufficiency. No pericardial effusion masses or vegetations.
[2024-10-13] MEDS ORDERED: ACETAMINOPHEN 325 MG TAB PO PRN (19:30)
[2024-10-13] MEDS: LABETALOL HCL 200 MG TAB PO SCH (21:40)
[2024-10-14 01:00] VITALS: BP 108/52; PULSE 72; RESP 16; TEMP 95; O2SAT 95
[2024-10-14 05:00] VITALS: BP 98/58; PULSE 81; RESP 20; TEMP 96.3; O2SAT 95
[2024-10-14 07:45] VITALS: PULSE 76
[2024-10-14 09:07] VITALS: BP 117/53; PULSE 82; RESP 18; TEMP 98.1; O2SAT 91
[2024-10-14 12:48] VITALS: BP 96/45; PULSE 67; RESP 18; TEMP 98.3; O2SAT 94
[2024-10-14 14:58] VITALS: BP 116/61; PULSE 70; TEMP 36.8
--- NOTE | 2024-10-14 15:51 | DVHDS2 ---
Discharge Summary Date of Admission Oct 12, 2024 at 10:53 Date of Discharge: Oct 14, 2024 Labs/Diagnostic Data: Laboratory Results Test 10/14/24 11:05 10/12/24 16:28 10/12/24 10:56 10/12/24 07:57 POC Glucose 130 mg/dl (70-106) Influenza Type A Antigen Negative (Negative) Influenza Type B Antigen Negative (Negative) SARS-CoV-2 Antigen (Rapid) Negative (NEGATIVE) Urine Color Colorless (Yellow) Urine Clarity Clear (Clear) Urine pH 8.0 (5.0-9.0) Urine Specific [place] 1.004 (1.001-1.035) Urine Protein 1+ (Negative) Urine Ketones Negative (Negative) Urine Blood Negative /uL (Negative) Urine Nitrite Negative (Negative) Urine Bilirubin Negative (Negative) Urine Urobilinogen Normal mg/dL (Negative) Urine Leukocyte Esterase Negative /uL (Negative) Urine RBC 1 /hpf (0 - 4) Urine Microscopic WBC 1 /HPF (0-5) Urine Squamous Epithelial Cells Few /hpf (<5) Urine Bacteria None seen /hpf (None Seen) Urine Glucose Normal mg/dL (Normal) White Blood Count 9.9 10^3/uL (4.4-10.8) Red Blood Count 3.37 10^6/uL (4.0-5.20) Hemoglobin 11.0 g/dL (12.2-16.2) Hematocrit 30.6 % (36.0-46.0) Mean Corpuscular Volume 90.7 fL (80.0-100.0) Mean Corpuscular Hemoglobin 32.7 pg (28.0-32.0) Mean Corpuscular Hemoglobin Concent 36.0 g/dL (32.0-36.0) Red Cell Distribution Width 13.1 % (11.8-14.3) Platelet Count 186 10^3/uL (140-450) Mean Platelet Volume 9.8 fL (6.9-10.8) Neutrophils (%) (Auto) 71.1 % (37.0-80.0) Lymphocytes (%) (Auto) 20.3 % (10.0-50.0) Monocytes (%) (Auto) 5.5 % (0.0-12.0) Eosinophils (%) (Auto) 2.5 % (0.0-7.0) Basophils (%) (Auto) 0.6 % (0.0-2.0) Neutrophils # (Auto) 7.0 10 ^3/uL (1.6-8.6) Lymphocytes # (Auto) 2.0 10 ^3/uL (0.4-5.4) Monocytes # (Auto) 0.5 10 ^3/uL (0-1.3) Eosinophils # (Auto) 0.2 10 ^3/uL (0-0.8) Basophils # (Auto) 0.1 10 ^3/uL (0-0.2) Nucleated Red Blood Cells 0.0 % Sodium Level 137 mmol/L (136-145) Potassium Level 3.5 mmol/L (3.5-5.1) Chloride Level 94 mmol/L (98-107) Carbon Dioxide Level 33 mmol/L (20-31) Anion Gap 10 (5-15) Blood Urea Nitrogen 21 mg/dL (9-23) Creatinine 2.85 mg/dL (0.550-1.02) Glomerular Filtration Rate Calc 18 mL/min (>90) BUN/Creatinine Ratio 7.4 (10.0-20.0) Serum Glucose 107 mg/dL (74-106) Calcium Level 9.5 mg/dL (8.7-10.4) Other Laboratory Tests 10/12/24 07:57 Brief Hx & Hospital Course: 59-year-old female with a known history of end-stage renal disease on hemodialysis, hypertension, insulin-dependent diabetes sinus type 2 initially presented to the hospital with a nausea and high blood pressure found to have hypertensive urgency. Patient also has a end-stage renal disease on hemodialysis. Patient's medications were adjusted. Patient does have known history of insulin-dependent diabetes mellitus type 2 as well. Patient is currently blood pressure is controlled and she has all her home medications. Son was updated at bedside as well. Patient is being discharged under stable condition. Condition at Discharge: Stable Final Diagnosis/Problems List 59-year-old female with a known history of end-stage renal disease on hemodialysis, hypertension, insulin-dependent diabetes sinus type 2 initially presented to the hospital with a nausea and high blood pressure found to have 1. Hypertensive urgency 2. End-stage renal disease on hemodialysis 3. Insulin-dependent diabetes mellitus type 2 Discharge Disposition: Home SNF Discharge Will this Physician continue t: No Discharge Instruct/Medications Diet: Cardiac 2g Na,low cholest Diet comment: 1800 ADA diet Activity: No Restrictions, As Tolerated Follow Up/Referral: Follow up with the PCP in one week Follow up with the dialysis center and Nephrology. Medications: Resume home medications. Discharge Statement: "Patient was advised to return to the ER or call 911 if any headaches, dizziness, shortness of breath, chest pain, abdominal pain, bleeding, fevers, or worsening of medical condition. Patient was counseled about treatment plan, medications, possible side effects, patientverbalized understanding. All questions were answered to the best of my ability. This discharge took greater then 30 minutes in planning, reviewing documentation, counseling the patient, and discussing with other team members." ASSESSMENT ASSESSMENT Assessment 59-year-old female with a known history of end-stage renal disease on hemodialysis, hypertension, insulin-dependent diabetes sinus type 2 initially presented to the hospital with a nausea and high blood pressure found to have 1. Hypertensive urgency 2. End-stage renal disease on hemodialysis 3. Insulin-dependent diabetes mellitus type 2 Date of Service: Oct 14, 2024 Billing Provider: CHAPITO AVINA MD Common Visit Codes: [id number] DISCH DAY >30min CHAPITO AVINA MD Oct 14, 2024 15:51
--- NOTE | 2024-10-14 21:13 | DVHPN2 ---
Progress Note - Dictate Date Seen: Oct 14, 2024 Has the PT tested + for MRSA If YES, has PT been informed?: No Medical Necessity Reason Pt with a Central, PICC or Fol: No Subjective Patient was seen and evaluated in follow up earlier today. No acute events overnight. Patient feels well. No new complaints. Echocardiogram reported left ventricular systolic function is preserved; EF is about 50% with normal RV function; trace mitral insufficiency; no pericardial effusion masses or vegetations- additional findings per report. vital signs Vital Sign Date Time Temp Pulse Resp B/P (MAP) Pulse Ox O2 Delivery O2 Flow Rate FiO2 10/14/24 14:58 36.8 70 10/14/24 12:48 18 96/45 (62) 94 10/14/24 07:45 Room Air* 0 21 Total Intake and Output 10/13/24 10/13/24 10/14/24 15:00 23:00 07:00 Intake Total 480 ml 400 ml Balance 480 ml 400 ml objective Vitals and nursing notes reviewed. General Appearance: Cooperative, No acute distress HEENT: Atraumatic, PERRLA, EOMI, Mucous membr. moist/pink Respiratory: Clear to auscultation, Normal air movement Cardiovascular: Regular rate, Normal S1, Normal S2, No murmurs Abdominal: Normal bowel sounds, Soft, No tenderness, No hepatospenomegaly, No masses Extremities: No clubbing, No cyanosis, No edema, Normal pulses, No tenderness/swelling Skin: No rashes, No breakdown, No significant lesion Neuro: Alert, Oriented X3 Psych/Mental Status: Mental status NL, Mood NL laboratory and microbiology Laboratory Tests 10/12/24 07:57 Test 10/12/24 07:57 Range/Units Serum Glucose 107 H 74-106 mg/dL Problem List Acute Hypertensive urgency ESRD on dialysis on HD TTS Cardiomegaly and pulmonary vascular congestion Essential hypertension Hyperlipidemia Assessment/Plan DC planning in progress. Cleared for discharge from Nephrology standpoint. Resume outpatient dialysis tomorrow. Plan discussed with: Patient, Other (RN) ISABELLA VALDERRAMA DO Oct 14, 2024 21:13
== END 2024-10-14 16:15 | disposition home or self-care (01) | DRG 199 ==
LOC: EDBD 07:45 → ER 07:55 → OVERFLOW 10:53 → ER 10:54 → TELE-WESTW 17:56
PROVIDERS: ADMIT Internal Medicine; ATTEND Internal Medicine
DX: I16.0 Hypertensive urgency (principal); N18.6 End stage renal disease; E11.22 Type 2 diabetes mellitus with diabetic chronic kidney disease; E78.5 Hyperlipidemia, unspecified; Z20.822 Contact with and (suspected) exposure to COVID-19; I12.0 Hypertensive chronic kidney disease with stage 5 chronic kidney disease or end stage renal disease; Z99.2 Dependence on renal dialysis; Z79.899 Other long term (current) drug therapy; Z79.4 Long term (current) use of insulin; Z83.3 Family history of diabetes mellitus; Z82.5 Family history of asthma and other chronic lower respiratory diseases; Z82.49 Family history of ischemic heart disease and other diseases of the circulatory system; Z88.8 Allergy status to other drugs, medicaments and biological substances
CPT/HCPCS: 36415; 71045; 80048; 81001; 82962; 85025; 87040; 87081; 87426; 87804; 93005; 93306; 96374; G0378